=== PATIENT | male | born 1985 | race African-American/Black ===

== ENCOUNTER 2018-11-21 13:41 | Emergency (ER) | payer SELFPAY ==
[2018-11-21] MEDS ORDERED: ACETAMINOPHEN 325 MG TABLET ONE (15:11)
[2018-11-21] MEDS ORDERED: ASPIRIN EC 81 MG TAB PO ONE (15:12)
[2018-11-21] MEDS ORDERED: NA CHLORIDE 0.9% 1,000 ML ONE (15:12)
[2018-11-21 15:22] LABS: Barbiturates NEGATIVE (NEGATIVE); Benzodiazepines NEGATIVE (NEGATIVE); Cocaine NEGATIVE (NEGATIVE); METHAMPHETAM NEGATIVE (NEGATIVE); Methadone NEGATIVE (NEGATIVE); Opiates NEGATIVE (NEGATIVE); Phencyclidine NEGATIVE (NEGATIVE); THC Cannibis NEGATIVE (NEGATIVE)
[2018-11-21 15:32] LABS: Absolute Lymphocytes (CBC) 1.9 K/uL (0.7-4.9); Absolute Monocytes 0.6 K/uL (0.1-1.3); Absolute Neutrophil 2.3 K/uL (1.8-8.0); Basophils % 2.6 % (0-1.3); Eosinophils % 0.9 % (0-4.4); Lymphocytes % 38.6 % (15.3-44.8); MPV 9.3 fL (7.6-11.3); Monocytes % 11.3 % (3.3-12.3); RBC Red Blood Cell Count 4.86 M/uL (4.33-5.43)
[2018-11-21 15:46] LABS: ALT/SGPT 47 U/L (12-78); AST/SGOT 25 U/L (15-37); Albumin 4.2 g/dL (3.4-5.0); Alkaline Phosphatase 65 U/L (45-117); BUN Blood Urea Nitrogen 10 mg/dL (7-18); Bicarbonate 32 mmol/L (21-32); Bilirubin Direct 0.1 mg/dL (0-0.2); Bilirubin Total 0.5 mg/dL (0.2-1.0); Glucose Level 83 mg/dL (74-106); Lipase 60 U/L (73-393); Magnesium 2.3 mg/dL (1.8-2.4); Potassium 3.9 mmol/L (3.5-5.1); Protein, Total 8.1 g/dL (6.4-8.2); Sodium Level 140 mmol/L (136-145); Troponin (Emerg Dept Use Only) < 0.02 ng/mL (0.0-0.045)
[2018-11-21 15:48] LABS: NT PRO-BNP < 5 pg/mL (<125)
[2018-11-21 16:05] LABS: Protime INR 0.98
--- NOTE | 2018-11-21 16:25 | EDPHYS ---
Physician Documentation [facility] Name: Candelario Escobar Age: 33 yrs Sex: Male : 1985 Arrival Date: 11/21/2018 Time: 13:49 Bed 23 Private MD: ED Physician Dakota Ivey HPI: 11/21 14:52 This 33 yrs old Black Male presents to ER via EMS with complaints of chest pain x 24 edinson hours. 14:52 The patient complains of pain to the forehead. The patient describes the headache as a edinson pressure. Onset: The symptoms/episode began/occurred today. The patient or guardian reports chest pain that is located primarily in the anterior chest wall, left. The pain does not radiate. Associated signs and symptoms: The patient has no apparent associated signs or symptoms. Severity of symptoms:. Headache History: Denies prior headaches. Historical: - Allergies: 13:50 No Known Allergies; ca1 - PMHx: 13:50 Hypertension; ca1 - PSHx: 13:50 Left Arm Surgery; ca1 - Immunization history:: Flu vaccine is not up to date. - Social history:: Smoking status: Patient/guardian denies using tobacco. - Ebola Screening: : No symptoms or risks identified at this time. - Family history:: not pertinent. ROS: 14:52 Constitutional: Negative for fever, chills, and weight loss, Eyes: Negative for injury, edinson pain, redness, and discharge, ENT: Negative for injury, pain, and discharge, Neck: Negative for injury, pain, and swelling, Respiratory: Negative for shortness of breath, cough, wheezing, and pleuritic chest pain, Abdomen/GI: Negative for abdominal pain, nausea, vomiting, diarrhea, and constipation, Back: Negative for injury and pain, : Negative for injury, bleeding, discharge, and swelling, MS/Extremity: Negative for injury and deformity, Skin: Negative for injury, rash, and discoloration, Neuro: Negative for headache, weakness, numbness, tingling, and seizure, Psych: Negative for depression, anxiety, suicide ideation, homicidal ideation, and hallucinations, Allergy/Immunology: Negative for hives, rash, and allergies, Endocrine: Negative for neck swelling, polydipsia, polyuria, polyphagia, and marked weight changes, Hematologic/Lymphatic: Negative for swollen nodes, abnormal bleeding, and unusual bruising. 14:52 Cardiovascular: Positive for chest pain, of the left clavicle and anterior aspect of left upper chest. Exam: 14:52 Constitutional: This is a well developed, well nourished patient who is awake, alert, edinson and in no acute distress. Head/Face: Normocephalic, atraumatic. Eyes: Pupils equal round and reactive to light, extra-ocular motions intact. Lids and lashes normal. Conjunctiva and sclera are non-icteric and not injected. Cornea within normal limits. Periorbital areas with no swelling, redness, or edema. ENT: Nares patent. No nasal discharge, no septal abnormalities noted. Tympanic membranes are normal and external auditory canals are clear. Oropharynx with no redness, swelling, or masses, exudates, or evidence of obstruction, uvula midline. Mucous membranes moist. Neck: Trachea midline, no thyromegaly or masses palpated, and no cervical lymphadenopathy. Supple, full range of motion without nuchal rigidity, or vertebral point tenderness. No Meningismus. Cardiovascular: Regular rate and rhythm with a normal S1 and S2. No gallops, murmurs, or rubs. Normal PMI, no JVD. No pulse deficits. Respiratory: Lungs have equal breath sounds bilaterally, clear to auscultation and percussion. No rales, rhonchi or wheezes noted. No increased work of breathing, no retractions or nasal flaring. Abdomen/GI: Soft, non-tender, with normal bowel sounds. No distension or tympany. No guarding or rebound. No evidence of tenderness throughout. Back: No spinal tenderness. No costovertebral tenderness. Full range of motion. Male : Normal genitalia with no discharge or lesions. Skin: Warm, dry with normal turgor. Normal color with no rashes, no lesions, and no evidence of cellulitis. MS/ Extremity: Pulses equal, no cyanosis. Neurovascular intact. Full, normal range of motion. Neuro: Awake and alert, GCS 15, oriented to person, place, time, and situation. Cranial nerves II-XII grossly intact. Motor strength 5/5 in all extremities. Sensory grossly intact. Cerebellar exam normal. Normal gait. Psych: Awake, alert, with orientation to person, place and time. Behavior, mood, and affect are within normal limits. 14:52 Chest/axilla: Inspection: normal, Palpation: tenderness, that is mild, of the left clavicle and anterior aspect of left upper chest. 14:52 Musculoskeletal/extremity: DVT Exam: No signs of deep vein thrombosis. no pain, no swelling, no tenderness, negative Homans' sign noted on exam, no appreciated bluish discoloration, no erythema, no increased warmth. 15:00 Neck: ROM/movement: is normal, no acute changes, Meningeal signs: are not present, edinson Kernig's sign is negative, Brudzinski's sign is negative. 16:24 Neuro: Orientation: is normal, appropriate for stated age, no acute changes, Mentation: edinson is normal, appropriate for stated age, no acute changes, Memory: is normal, appropriate for stated age, no acute changes, Cranial nerves: grossly normal, is grossly normal based on the patient's age, no acute changes, Cerebellar function: is grossly normal, is grossly normal based on the patient's age, no acute changes, Motor: is normal, is grossly normal based on the patient's age, Sensation: is normal, no obvious gross deficits, appropriate Gait: not tested. Deep tendon reflexes are 2+ (normal) in the bilateral brachioradialis, bicep, tricep and patellar and Achilles tendons, Babinski testing is normal, seizure activity, is not displayed by the patient. Vital Signs: 13:50 BP 139 / 98; Pulse 66; Resp 19 S; Temp 98.3; Pulse Ox 98% on R/A; Weight 81.65 kg; ca1 Height 6 ft. 4 in. (193.04 cm); Pain 6/10; 14:50 BP 137 / 91; Pulse 66; Resp 19; Pulse Ox 99% on R/A; ca1 16:02 BP 143 / 90; Pulse 65; Resp 18; Pulse Ox 100% on R/A; mg2 16:15 BP 142 / 81; Pulse 83; Resp 20; Pulse Ox 96% ; jp3 16:23 BP 142 / 81; Pulse 78; Resp 19; Pulse Ox 100% on R/A; ca1 13:50 Body Mass Index 21.91 (81.65 kg, 193.04 cm) ca1 MDM: 14:35 Patient medically screened. [facility] 14:58 Data reviewed: vital signs, nurses notes, lab test result(s), EKG, radiologic studies, [facility] CT scan, plain films. 11/21 14:52 Order name: Basic Metabolic Panel; Complete Time: 15:55 [facility] 11/21 14:52 Order name: CBC with Diff; Complete Time: 15:55 [facility] 11/21 14:52 Order name: LFT's; Complete Time: 15:55 [facility] 11/21 14:52 Order name: Magnesium; Complete Time: 15:55 [facility] 11/21 14:52 Order name: NT PRO-BNP; Complete Time: 15:55 [facility] 11/21 14:52 Order name: PT-INR; Complete Time: 16:23 [facility] 11/21 14:52 Order name: Troponin (emerg Dept Use Only); Complete Time: 15:55 [facility] 11/21 14:52 Order name: XRAY Chest (1 view) [facility] 11/21 14:52 Order name: D-Dimer; Complete Time: 16:23 [facility] 11/21 14:52 Order name: UDS; Complete Time: 15:55 [facility] 11/21 14:52 Order name: Lipase; Complete Time: 15:55 [facility] 11/21 15:07 Order name: Urine Dipstick--Ancillary (enter results) 11/21 14:52 Order name: Cardiac monitoring; Complete Time: 14:53 [facility] 11/21 14:52 Order name: EKG - Nurse/Tech; Complete Time: 14:53 [facility] 11/21 14:52 Order name: IV Saline Lock; Complete Time: 15:17 [facility] 11/21 14:52 Order name: Labs collected and sent; Complete Time: 15:18 [facility] 11/21 14:52 Order name: O2 Per Protocol; Complete Time: 14:53 [facility] 11/21 14:52 Order name: O2 Sat Monitoring; Complete Time: 14:54 [facility] 11/21 14:52 Order name: Urine Dipstick-Ancillary (obtain specimen); Complete Time: 15:17 [facility] Administered Medications: 15:17 Drug: NS 0.9% 1000 ml Route: IV; Rate: 1 bolus; Site: left antecubital; mg2 16:26 Follow up: Urine output 300 ml; Response: No adverse reaction; IV Status: Completed ca1 infusion 15:17 Drug: Aspirin 162 mg Route: PO; mg2 16:25 Follow up: Response: No adverse reaction; Pain is decreased ca1 15:17 Drug: Tylenol 650 mg Route: PO; mg2 16:25 Follow up: Response: No adverse reaction; Pain is decreased ca1 Disposition: 11/21/18 16:24 Discharged to Home. Impression: Other chest pain, Essential (primary) hypertension. - Condition is Stable. - Discharge Instructions: Chest Wall Pain, Hypertension, Hypertension, [id number], Aspirin and Your Heart, Managing Your Hypertension. - Medication Reconciliation Form, Thank You Letter, Antibiotic Education, Prescription Opioid Use form. - Follow up: Private Physician; When: 2 - 3 days; Reason: Recheck today's complaints, Continuance of care, Re-evaluation by your physician. - Problem is new. - Symptoms have improved. Signatures: Dispatcher [employer] EDMS Dakota Ivey MD MD cha Gardose, Michele, RN RN mg2 Odette Donald RN RN ca1 Corrections: (The following items were deleted from the chart) 16:35 16:24 11/21/2018 16:24 Discharged to Home. Impression: Other chest pain; Essential ca1 (primary) hypertension. Condition is Stable. Discharge Instructions: Chest Wall Pain, Hypertension, Hypertension, Utix-dt-Leae, Aspirin and Your Heart, Managing Your Hypertension. Forms are Medication Reconciliation Form, Thank You Letter, Antibiotic Education, Prescription Opioid Use. Follow up: Private Physician; When: 2 - 3 days; Reason: Recheck today's complaints, Continuance of care, Re-evaluation by your physician. Problem is new. Symptoms have improved. edinson
--- NOTE | 2018-11-21 16:25 | ER ---
Nurse's Notes [facility] Name: Candelario Escobar Age: 33 yrs Sex: Male : 1985 Arrival Date: 11/21/2018 Time: 13:49 Bed 23 Private MD: Diagnosis: Other chest pain;Essential (primary) hypertension Presentation: 11/21 13:49 Presenting complaint: EMS states: chest pain since last night that is non-radiating. ca1 Pain is described as stabbing pain. Pt reports to be taking BP meds but has not taken for a week. VS are normal and EKG at sinus rhythm on 12L. Transition of care: patient was not received from another setting of care. Onset of symptoms was November 20, 2018. Risk Assessment: Do you want to hurt yourself or someone else? Patient reports no desire to harm self or others. Initial Sepsis Screen: Does the patient meet any 2 criteria? No. Patient's initial sepsis screen is negative. Does the patient have a suspected source of infection? No. Patient's initial sepsis screen is negative. Care prior to arrival: Glucose check: 92. 13:49 Method Of Arrival: EMS: [facility] ca1 13:49 Acuity: MARY LOU 3 ca1 Triage Assessment: 13:50 General: Appears in no apparent distress. comfortable, Behavior is calm. Pain: ca1 Complains of pain in chest Pain does not radiate. Pain currently is 6 out of 10 on a pain scale. Quality of pain is described as stabbing, Pain began 1 day ago. Neuro: Level of Consciousness is awake, alert, obeys commands, Oriented to person, place, time, situation. Cardiovascular: Heart tones S1 S2 present Capillary refill < 3 seconds Patient's skin is warm and dry. Respiratory: Airway is patent Respiratory effort is even, unlabored, Respiratory pattern is regular, symmetrical, Breath sounds are clear bilaterally. Historical: - Allergies: 13:50 No Known Allergies; ca1 - PMHx: 13:50 Hypertension; ca1 - PSHx: 13:50 Left Arm Surgery; ca1 - Immunization history:: Flu vaccine is not up to date. - Social history:: Smoking status: Patient/guardian denies using tobacco. - Ebola Screening: : No symptoms or risks identified at this time. - Family history:: not pertinent. Screenin:55 Abuse screen: Denies threats or abuse. Denies injuries from another. Nutritional ca1 screening: No deficits noted. Tuberculosis screening: No symptoms or risk factors identified. Fall Risk None identified. Assessment: 13:55 General: Appears in no apparent distress. comfortable, Behavior is calm, cooperative, ca1 appropriate for age. Pain: Complains of pain in chest Pain does not radiate. Pain currently is 6 out of 10 on a pain scale. Quality of pain is described as stabbing, Pain began 1 day ago. Neuro: Level of Consciousness is awake, alert, obeys commands, Oriented to person, place, time, situation. Cardiovascular: Heart tones S1 S2 present Capillary refill < 3 seconds Patient's skin is warm and dry. Respiratory: Airway is patent Respiratory effort is even, unlabored, Respiratory pattern is regular, symmetrical, Breath sounds are clear. Respiratory: Breath sounds are clear bilaterally. GI: No deficits noted. No signs and/or symptoms were reported involving the gastrointestinal system. : No deficits noted. No signs and/or symptoms were reported regarding the genitourinary system. EENT: No deficits noted. No signs and/or symptoms were reported regarding the EENT system. Derm: Skin is intact, is healthy with good turgor, Skin is pink, warm \T\ dry. Musculoskeletal: Circulation, motion, and sensation intact. Capillary refill < 3 seconds. 14:50 Reassessment: Patient appears in no apparent distress at this time. Patient and/or ca1 family updated on plan of care and expected duration. Pain level reassessed. Patient is alert, oriented x 3, equal unlabored respirations, skin warm/dry/pink. 16:23 Reassessment: Patient appears in no apparent distress at this time. Patient is alert, ca1 oriented x 3, equal unlabored respirations, skin warm/dry/pink. Vital Signs: 13:50 BP 139 / 98; Pulse 66; Resp 19 S; Temp 98.3; Pulse Ox 98% on R/A; Weight 81.65 kg; ca1 Height 6 ft. 4 in. (193.04 cm); Pain 6/10; 14:50 BP 137 / 91; Pulse 66; Resp 19; Pulse Ox 99% on R/A; ca1 16:02 BP 143 / 90; Pulse 65; Resp 18; Pulse Ox 100% on R/A; mg2 16:15 BP 142 / 81; Pulse 83; Resp 20; Pulse Ox 96% ; jp3 16:23 BP 142 / 81; Pulse 78; Resp 19; Pulse Ox 100% on R/A; ca1 13:50 Body Mass Index 21.91 (81.65 kg, 193.04 cm) ca1 ED Course: 13:49 Patient arrived in ED. ca1 13:50 Arm band placed on right wrist. EKG completed in triage. Results shown to MD. ca1 13:52 Triage completed. ca1 13:53 EKG done, by ED staff, reviewed by Dakota Ivey MD. jp3 13:55 Patient has correct armband on for positive identification. Placed in gown. Bed in low ca1 position. Call light in reach. Side rails up X 1. upper cutter on. Pulse ox on. NIBP on. Warm blanket given. 14:35 Dakota Ivey MD is Attending Physician. [facility] 15:00 Urine collected: clean catch specimen, clear, gilma colored. jp3 15:05 Missed attempt(s): 20 gauge in right upper arm. Bleeding controlled, band aid applied, jp3 catheter tip intact. 15:10 Initial lab(s) drawn, by nj, sent to lab. Inserted saline lock: 22 gauge in left jp3 antecubital area, using aseptic technique. Blood collected. 15:18 Urine Dipstick--Ancillary (enter results) Sent. jp3 15:18 Lipase Sent. jp3 15:18 UDS Sent. jp3 15:18 D-Dimer Sent. jp3 15:18 Basic Metabolic Panel Sent. jp3 15:18 CBC with Diff Sent. jp3 15:18 LFT's Sent. jp3 15:18 Magnesium Sent. jp3 15:18 NT PRO-BNP Sent. jp3 15:18 PT-INR Sent. jp3 15:18 Troponin (emerg Dept Use Only) Sent. jp3 15:36 XRAY Chest (1 view) In Process Unspecified. EDMS 16:21 Odette Donald, RN is Primary Nurse. ca1 16:32 No provider procedures requiring assistance completed. IV discontinued, intact, ca1 bleeding controlled, No redness/swelling at site. Pressure dressing applied. Administered Medications: 15:17 Drug: NS 0.9% 1000 ml Route: IV; Rate: 1 bolus; Site: left antecubital; mg2 16:26 Follow up: Urine output 300 ml; Response: No adverse reaction; IV Status: Completed ca1 infusion 15:17 Drug: Aspirin 162 mg Route: PO; mg2 16:25 Follow up: Response: No adverse reaction; Pain is decreased ca1 15:17 Drug: Tylenol 650 mg Route: PO; mg2 16:25 Follow up: Response: No adverse reaction; Pain is decreased ca1 Output: 16:26 Urine: 300ml; Total: 300ml. ca1 Outcome: 16:24 Discharge ordered by MD. neves 16:34 Discharged to [employer] Enforcement ca1 16:34 Condition: stable 16:34 Discharge instructions given to patient, Instructed on discharge instructions, follow up and referral plans. Demonstrated understanding of instructions, follow-up care. 16:35 Patient left the ED. ca1 Signatures: Dispatcher [employer] EDMS Dakota Ievy MD MD cha Gardose, Michele, RN RN mg2 Mandeep Carpenter jp3 Odette Donald RN RN ca1 Corrections: (The following items were deleted from the chart) 14:53 13:53 EKG done, by ED staff, gema ribeiro
--- NOTE | 2018-11-21 17:49 | RAD REPORT ---
EXAM DESCRIPTION: RAD - Chest Single View - 11/21/2018 4:14 pm CLINICAL HISTORY: Chest pain COMPARISON: August 2016 TECHNIQUE: AP portable chest image was obtained 1534 hours . FINDINGS: Lungs are clear. Heart and vasculature are normal. No measurable pleural effusion and no p neumothorax. No acute bony abnormality seen. No acute aortic findings suspected. IMPRESSION: No acute cardiopulmonary process.
[2018-11-21 19:33] LABS: Urine Blood NEGATIVE (NEG); Urine Glucose NEGATIVE (NEG); Urine Protein NEGATIVE (NEG); Urine Specific Gravity 1.015 (1.005-1.030); Urine pH 8.5 (5.0-7.0)
--- NOTE | 2018-11-24 11:39 | EKG ---
Test Date: 2018-11-21 Test Time: 13:53:44 Senior Branch Manager: WILLY MEASUREMENT RESULTS: Intervals: Rate: 69 AR: 174 QRSD: 96 QT: 380 QTc: 407 [place]: P: 54 AR: 174 QRS: 49 T: 48 INTERPRETIVE STATEMENTS: Normal sinus rhythm Normal ECG Compared to ECG 08/24/2016 13:25:42 Sinus bradycardia no longer present Left ventricular hypertrophy no longer present Electronically Signed On 11-23-18 10:53:44 CDT by Fredi Catalan
== END 2018-11-21 16:35 | disposition home or self-care (01) ==
LOC: ER 13:41
DX: I10 Essential (primary) hypertension (principal)
CPT/HCPCS: 36415; 71045; 80048; 80076; 80307; 81003; 83690; 83735; 83880; 84484; 85025; 85379; 85610; 93005; 96360; 99285; J7030